=== PATIENT | male | born 1950 | race Two or more races ===

== ENCOUNTER → 2020-05-04 07:37 | Outpatient (CLI) | payer MEDICARE, SELFPAY ==
[2020-05-04 21:18] LABS: SARS-CoV-2 RNA PCR Negative
== END ==
PROVIDERS: PCP Emergency Medicine; Visit Provider Emergency Medicine
DX: R68.89 Other general symptoms and signs (principal); Z20.822 Contact with and (suspected) exposure to COVID-19
CPT/HCPCS: C9803; U0003; U0005

== ENCOUNTER 2022-04-12 01:16 | Day surgery (SDC) | payer MEDICARE, SELFPAY ==
[2022-03-27 14:26] VITALS: BMI 36.1
[2022-04-12 06:48] LABS: Glucose Point of Care 227 mg/dl (65-105)
[2022-04-12 06:49] VITALS: BP 148/84; PULSE 106; RESP 18; TEMP 36.2; O2SAT 98
[2022-04-12] MEDS: LACTATED RINGERS 1,000 ML 150 ML IV CONT (06:56)
--- NOTE | 2022-04-12 07:29 | WPDANESEPPF ---
Anes - Initial Pre Proc Eval Procedure: Operation Date: 04/12/22 08:00 Proposed Procedures p Screening Colonoscopy - Matthew Clement MD Date/Time: 04/12/22 07:29 Surgeon: Matthew Clement MD Pre Op Diagnosis: Neoplasm Screening Patient Data Age: 71 Gender: M Height: 1.63 m Weight: 73.9 kg Last Vital Signs Temp 97.2 F L 04/12/22 06:49 Pulse 106 H 04/12/22 06:49 Resp 18 04/12/22 06:49 BP 148/84 H 04/12/22 06:49 Pulse Ox 98 04/12/22 06:49 O2 Del Method Room Air 04/12/22 06:49 Allergies Allergy/AdvReac Type Severity Reaction Status Date / Time No Known Allergies Allergy Verified 04/12/22 06:47 Home Medications Medication Instructions Recorded Confirmed Type glimepiride 2 mg tablet 2 mg PO DAILY 03/27/22 04/12/22 History irbesartan 150 mg tablet 150 mg PO DAILY 03/27/22 04/12/22 History metformin 850 mg tablet 850 mg PO BIDWM 03/27/22 04/12/22 History metoprolol succinate 50 mg 50 mg PO DAILY 03/27/22 04/12/22 History tablet,extended release 24 hr rosuvastatin 5 mg tablet 5 mg PO DAILY 03/27/22 04/12/22 History Laboratory Tests 04/12/22 06:43 POC Capillary Glucose 227 mg/dl H mg/dl (65-105) Patient hx anesthesia problems: none Family hx anesthesia problems: none Results Review: All pre-operative results and documents have been reviewed as part of the pre-operative evaluation. [facility] Social History Social History Smoking status: Former smoker Tobacco type: cigarettes Additional smoking assessment comments: QUIT AGE 50 Alcohol intake: current Drinks per week: 1 Substance use: never Substance use type: does not use Living arrangements: with family Spiritual care concerns: No Anes - Eval Final PreProcedure Day of Procedure 04/12/22 07:29 Patient weight: overweight Heart: regular rate and rhythm Lungs: clear to auscultation Airway: Mallampati scale class II Neurological: alert and oriented Last oral intake: >/= 8 hours ASA classification: III Emergent: no Anesthetic plan: proceed Anesthesia type and monitoring: general GIVS and standard monitoring Results Review: All pre-operative results and documents have been reviewed as part of the pre-operative evaluation. Informed Consent: The patient's anesthetic plan and its attendant risks and benefits were discussed with the patient/family/POA. Questions were solicited and answers provided to the satisfaction of the patient/family/POA.
--- NOTE | 2022-04-12 07:34 | PM.HPGS ---
History of Present Illness History of Present Illness Consent: Risks, benefits, and alternatives have been discussed and questions answered. Patient agrees to proceed with procedure. Chief complaint: Neoplasm Screening Narrative: Pamela Freed is a 71 year old male here for screening colonoscopy Review of Systems Constitutional: Constitutional: Denies headache(s) and Denies weakness Eyes: Eyes: Denies blurry vision ENT: Reports Normal hearing present, Denies headache(s) and Denies neck pain Cardiovascular: Cardiovascular: Denies chest pain and Denies dyspnea Respiratory: Respiratory: Denies dyspnea Gastrointestinal: Gastrointestinal: Reports no additional gastrointestinal complaints Genitourinary: Genitourinary: Denies dysuria Musculoskeletal: Musculoskeletal: Denies neck pain Integumentary/Breasts: Skin/Breast: Denies dry skin Neurologic: Reports Normal hearing present, Denies headache(s) and Denies weakness Psychiatric: Psychiatric: Denies anxiety Endocrine: Endocrine: Denies change in body appearance Hematologic/Lymphatic: Hematologic/Lymphatic: Denies easy bleeding Allergic/Immunologic: Allergic/Immunologic: Denies urticaria PMF Past Medical History Medical History (Updated 04/12/22 @ 07:35 by Matthew Clement MD) Colon cancer screening Social History Social History Smoking status: Former smoker Tobacco type: cigarettes Additional smoking assessment comments: QUIT AGE 50 Alcohol intake: current Drinks per week: 1 Substance use: never Substance use type: does not use Living arrangements: with family Spiritual care concerns: No Meds Home Medications and Allergies Home Medications Medication Instructions Recorded Confirmed Type glimepiride 2 mg tablet 2 mg PO DAILY 03/27/22 04/12/22 History irbesartan 150 mg tablet 150 mg PO DAILY 03/27/22 04/12/22 History metformin 850 mg tablet 850 mg PO BIDWM 03/27/22 04/12/22 History metoprolol succinate 50 mg 50 mg PO DAILY 03/27/22 04/12/22 History tablet,extended release 24 hr rosuvastatin 5 mg tablet 5 mg PO DAILY 03/27/22 04/12/22 History Allergies Allergy/AdvReac Type Severity Reaction Status Date / Time No Known Allergies Allergy Verified 04/12/22 06:47 Vital Signs Vital Signs - 24 hr 04/12/22 06:49 Temperature 97.2 F L Pulse Rate 106 H Respiratory Rate 18 Blood Pressure 148/84 H Pulse Oximetry 98 Oxygen Delivery Room Air Exam Const: General: comfortable and no acute distress HENMT: Face/Nose/Sinus: Normal nares present Eyes: General: appearance normal, both eyes and all related structures Neck: Neck: no JVD Resp: Auscultation: clear to auscultation bilaterally Cardio: Rate: regular rate Rhythm: regular rhythm GI: Inspection: non-distended GI Palp: Yes Soft to palpation Skin: General skin exam: normal color Neuro: General: gait normal Speech: normal speech Extrem: General: normal to inspection Psych: Mental Status: mental status grossly normal Assessment and Plan Assessment and plan (1) Colon cancer screening: Code(s): Z12.11 - Encounter for screening for malignant neoplasm of colon Status: Acute Assessment and Plan: colonoscopy
[2022-04-12 07:54] VITALS: BP 128/66; PULSE 93; RESP 28; O2SAT 97
[2022-04-12 08:04] VITALS: BP 118/65; PULSE 88; RESP 20; O2SAT 97
[2022-04-12 08:14] VITALS: BP 160/75; PULSE 94; RESP 28; O2SAT 100
== END 2022-04-12 08:25 | disposition home or self-care (01) ==
PROVIDERS: PCP Emergency Medicine; Visit Provider Internal Medicine Gastroenterology
PROC: 0DJD8ZZ Inspection of Lower Intestinal Tract, Via Natural or Artificial Opening Endoscopic (ICD-10-PCS; CPT 45378; principal; 2022-04-12 08:00)
DX: Z12.11 Encounter for screening for malignant neoplasm of colon (principal); K57.30 Diverticulosis of large intestine without perforation or abscess without bleeding; K63.5 Polyp of colon; K64.8 Other hemorrhoids; Z79.84 Long term (current) use of oral hypoglycemic drugs; Z87.891 Personal history of nicotine dependence
CPT/HCPCS: 45380; 82948; 88305; J2704; J7120

== ENCOUNTER 2023-09-18 07:29 | Outpatient (NON) | payer MEDICARE, SELFPAY | END 2023-09-18 07:30 | disposition home or self-care (01) | PROVIDERS: PCP Emergency Medicine; Visit Provider Internal Medicine Gastroenterology | DX: D64.9 Anemia, unspecified (principal) | CPT/HCPCS: 88305 ==

== ENCOUNTER 2023-09-18 07:40 | Day surgery (SDC) | payer MEDICARE, SELFPAY ==
[2023-09-03 14:10] VITALS: BMI 28.8
--- NOTE | 2023-09-17 20:00 | PM.HPGS ---
History of Present Illness History of Present Illness Consent: Risks, benefits, and alternatives have been discussed and questions answered. Patient agrees to proceed with procedure. Chief complaint: Iron deficiency, anemia Narrative: Pamela Freed is a 72 year old male with Iron def aemia Review of Systems Review of Systems: All systems reviewed & are unremarkable except as noted in HPI and below PMFSH Past Medical History Medical History Colon cancer screening HTN (hypertension) Hyperlipidemia Obesity Social History Social History Smoking status: Former smoker Tobacco type: cigarettes Additional smoking assessment comments: quit 2007 Alcohol intake: current Drinks per week: 1 Substance use: never Substance use type: does not use Living arrangements: with family Spiritual care concerns: No Meds Home Medications and Allergies Home Medications Medication Instructions Recorded Confirmed Type glimepiride 2 mg tablet 2 mg PO DAILY 03/27/22 09/18/23 History irbesartan 150 mg tablet 150 mg PO DAILY 03/27/22 09/18/23 History metformin 850 mg tablet 850 mg PO BIDWM 03/27/22 09/18/23 History metoprolol succinate 50 mg 50 mg PO DAILY 03/27/22 09/18/23 History tablet,extended release 24 hr rosuvastatin 5 mg tablet 5 mg PO DAILY 03/27/22 09/18/23 History ferrous sulfate 1 tab-cap PO DIRECTED 09/07/23 09/18/23 History Allergies Allergy/AdvReac Type Severity Reaction Status Date / Time No Known Allergies Allergy Verified 09/18/23 09:02 Exam Const: General: alert Orientation/consciousness: patient oriented x3 Resp: Auscultation: clear to auscultation bilaterally Cardio: Rhythm: regular rhythm GI: GI Palp: Yes Soft to palpation and No Tenderness to palpation present (GI) Neuro: General: patient oriented x3 Assessment and Plan Assessment and plan (1) Anemia: Code(s): D64.9 - Anemia, unspecified Status: Acute Assessment and Plan: EGD with possible biopsy or dilatation or cautery.
[2023-09-18 09:03] VITALS: BP 162/64; PULSE 71; RESP 17; TEMP 36.4; O2SAT 99
[2023-09-18] MEDS: LACTATED RINGERS 1,000 ML 150 ML IV CONT (09:06)
--- NOTE | 2023-09-18 09:10 | WPDANESEPPF ---
Anes - Initial Pre Proc Eval Procedure: Operation Date: 09/18/23 10:00 Proposed Procedures p Esophagogastroduodenoscopy - Franky Magallon MD Date/Time: 09/18/23 09:10 Surgeon: Franky Magallon MD Pre Op Diagnosis: Iron deficiency, anemia Patient Data Age: 72 Gender: M Height: 1.52 m Weight: 75.4 kg Last Vital Signs Temp 36.4 C 09/18/23 09:03 Pulse 71 09/18/23 09:03 Resp 17 09/18/23 09:03 BP 162/64 H 09/18/23 09:03 Pulse Ox 99 09/18/23 09:03 O2 Del Method Room Air 09/18/23 09:03 Allergies Allergy/AdvReac Type Severity Reaction Status Date / Time No Known Allergies Allergy Verified 09/18/23 09:02 Home Medications Medication Instructions Recorded Confirmed Type glimepiride 2 mg tablet 2 mg PO DAILY 03/27/22 09/18/23 History irbesartan 150 mg tablet 150 mg PO DAILY 03/27/22 09/18/23 History metformin 850 mg tablet 850 mg PO BIDWM 03/27/22 09/18/23 History metoprolol succinate 50 mg 50 mg PO DAILY 03/27/22 09/18/23 History tablet,extended release 24 hr rosuvastatin 5 mg tablet 5 mg PO DAILY 03/27/22 09/18/23 History ferrous sulfate 1 tab-cap PO DIRECTED 09/07/23 09/18/23 History Patient hx anesthesia problems: none Family hx anesthesia problems: none Results Review: All pre-operative results and documents have been reviewed as part of the pre-operative evaluation. [facility] Past Medical History Medical History (Updated 09/18/23 @ 09:10 by Sami Stubbs MD) Colon cancer screening HTN (hypertension) Hyperlipidemia Obesity Social History Social History Smoking status: Former smoker Tobacco type: cigarettes Additional smoking assessment comments: quit 2007 Alcohol intake: current Drinks per week: 1 Substance use: never Substance use type: does not use Living arrangements: with family Spiritual care concerns: No Anes - Eval Final PreProcedure Day of Procedure 09/18/23 09:10 Patient weight: obese Heart: regular rate and rhythm Lungs: clear to auscultation Airway: Mallampati scale class II Neurological: alert and oriented Last oral intake: >/= 8 hours ASA classification: III Emergent: no Anesthetic plan: proceed Anesthesia type and monitoring: general GIVS and standard monitoring Results Review: All pre-operative results and documents have been reviewed as part of the pre-operative evaluation. Informed Consent: The patient's anesthetic plan and its attendant risks and benefits were discussed with the patient/family/POA. Questions were solicited and answers provided to the satisfaction of the patient/family/POA.
[2023-09-18 09:14] LABS: Glucose Point of Care 183 mg/dl (65-105)
[2023-09-18 09:47] VITALS: BP 127/70; PULSE 78; RESP 14; O2SAT 100
[2023-09-18 09:57] VITALS: BP 126/66; PULSE 77; RESP 18; O2SAT 100
[2023-09-18 10:07] VITALS: BP 121/62; PULSE 76; RESP 18; O2SAT 99
--- NOTE | 2023-09-18 10:15 | WPDANESPN ---
Anes - Prog Note Post-Op Date/Time: 09/18/23 10:15 Cardiovascular status: normal Respiratory status: normal Airway patency: baseline Mental status: baseline Post-Op hydration status: normal Vital Signs: Last Vital Signs Temp 36.4 C 09/18/23 09:03 Pulse 71 09/18/23 09:03 Resp 17 09/18/23 09:03 BP 162/64 H 09/18/23 09:03 Pulse Ox 99 09/18/23 09:03 O2 Del Method Room Air 09/18/23 09:03 Pain Score (VAS): 0/10 I/O: Intake & Output 09/17/23 09/18/23 09/18/23 23:59 07:59 15:59 Intake Total 400 Balance 400 09/18/23 09:09 POC Capillary Glucose 183 H Patient Feedback: Patient satisfied with anesthetic care.
--- NOTE | 2023-09-18 10:29 | SUR.PHASEII ---
DISCHARGE INSTRUCTIONS REVEIWED WITH ADULT SON WHO SPEAKS [employer]UENT POLISH. PT MEETS DISCHARGE CRITERIA. WAITING TO SPEAK TO DR HUSSEIN AGAIN.
--- NOTE | 2023-09-18 10:42 | SUR.PHASEII ---
DR HUSSEIN SPEAKING TO PT AND SON
--- NOTE | 2023-09-18 10:50 | SUR.PHASEII ---
DR HUSSEIN AWARE OF POSITIVE H.PYLORI
== END 2023-09-18 10:42 | disposition home or self-care (01) ==
PROVIDERS: PCP Emergency Medicine; Visit Provider Internal Medicine Gastroenterology
PROC: 0DJ08ZZ Inspection of Upper Intestinal Tract, Via Natural or Artificial Opening Endoscopic (ICD-10-PCS; CPT 43235; principal; 2023-09-18 10:00)
DX: D50.9 Iron deficiency anemia, unspecified (principal); K21.9 Gastro-esophageal reflux disease without esophagitis; K29.70 Gastritis, unspecified, without bleeding
CPT/HCPCS: 43239